=== PATIENT | male | born 1945 | race Caucasian/White ===

== ENCOUNTER 2017-05-03 10:12 | Inpatient (IN) | payer MEDICARE ==
[2017-05-03] MEDS ORDERED: diphenhydrAMINE 25 MG CAP PO PRN (16:59)
[2017-05-03] MEDS ORDERED: Albuterol Sulfate 1.25 MG/3 ML NEB NEB SCH (18:30)
[2017-05-03] MEDS ORDERED: Triamcinolone 0.1% Cream 15 GM TUBE TOP PRN (19:33)
[2017-05-03] MEDS: Metoprolol Tartrate 50 MG TAB PO SCH (20:31)
[2017-05-03] MEDS: Montelukast Sodium 10 mg Tablet PO SCH (20:32)
[2017-05-03] MEDS: diphenhydrAMINE 25 MG CAP PO SCH (20:33)
[2017-05-03] MEDS: Famotidine 20 MG TAB PO SCH (20:34)
[2017-05-03] MEDS: cloNIDine 0.1 MG TAB PO SCH (20:34)
--- NOTE | 2017-05-03 22:38 | HP ---
DATE OF ADMISSION: 05/03/2017 ADMITTING PHYSICIAN: Jazzmine Norton MD NEUROSURGEON: Sudeep Russo MD GENERAL SURGERY: Woo Smith MD PRIMARY CARE PHYSICIAN: Aidan Holman MD REASON FOR ADMISSION: Skilled rehabilitation in [facility]. HISTORY OF PRESENT ILLNESS AND HOSPITAL COURSE: Mr. Dietrich is a 71-year-old male with history of chronic atrial fibrillation,on snf use of Eliquis; advanced dementia, hypertension, and chronic kidney disease stage 3. The patient was admitted initially to [facility] with presenting complaint of unwitnessed mechanical fall at home. The patient sustained a scalp laceration on this. The patient underwent extensive evaluation at [facility] including multiple imaging studies showing minimal subdural hematoma, which was noted nonoperatively by neurosurgeon. CT of the cervical spine revealed a burst fracture of C1, managed with a C-collar and nonoperatively. Patient was given pain control and discontinued his anticoagulation therapy with Eliquis for which he has been on in a while. The scalp laceration was repaired and did receive local wound care throughout his hospital course. Given his history of fall and advanced dementia , the patient was deemed appropriate candidate for skilled care and supervised environment, thus he was transferred to [facility] today. On evaluation, patient was by himself as per staff, family just left as represented by his , Tahira. Patient appears confused, but cooperative. PAST MEDICAL HISTORY: Hypertension, Alzheimer dementia, asthma, atrial fibrillation, on chronic use of Eliquis. PAST SURGICAL HISTORY: Pacemaker and hernia repair. SOCIAL HISTORY: Patient lives at home with his who serves as a primary caregiver. As per record, there was no history of alcohol, tobacco use, or illicit drug use. ALLERGIES: NKDA. MEDICATIONS: 1. Albuterol nebulized t.i.d. p.r.n. 2. Norvasc 10 mg p.o. daily. 3. Vitamin D3 of 2000 units p.o. daily. 4. Clonidine 0.1 mg p.o. b.i.d. 5. Benadryl 25 mg p.o. at bedtime p.r.n. 6. Aricept 10 mg p.o. daily. 7. Pepcid 20 mg p.o. b.i.d. 8. Namenda 10 mg p.o. b.i.d. 9. Metoprolol 25 mg p.o. b.i.d. 10. Singulair 10 mg at bedtime. 11. MiraLax 17 grams daily. 12. Senokot 2 tablets p.o. daily p.r.n. for constipation. REVIEW OF SYSTEMS: Unable to be obtained secondary to patient's dementia/ confusion. PHYSICAL EXAMINATION: VITAL SIGNS: Current vital signs, blood pressure 132/69, temperature 98.3, pulse 67, respirations 20, O2 sats 96% on room air. GENERAL: Patient is awake, alert, knows his name, answers simple questions with some comprehensible words, other words are garbled. Disoriented to time and place. Comfortable in bed, not in acute distress. HEENT: Laceration of the crown and occipital scalp, dry, and no signs of infection, no drainage. NECK: Cervical collar is in place. No tracheal deviation. No JVD, no bruit, no swelling. CHEST: Normal excursion. Nonlabored breathing. LUNGS: Clear to auscultation bilaterally. CARDIAC: Regular rate and rhythm. Normal S1 and S2. No murmurs. ABDOMEN: Flat, soft, normoactive bowel sounds, nondistended, nontender. EXTREMITIES: Range of motion normal. No swelling, no cyanosis. NEUROLOGIC: Nonfocal. Gait unsteady. Confused. SKIN: Pinkish red maculopapular rash, upper back. LABORATORY DATA: Recent labs from [facility], on 2016, WBC 11.8, hemoglobin 14.8, hematocrit 43.7, platelets 219. PT 14.6, INR 1.1, aPTT 32.2. Sodium 143, potassium 3.9, BUN 23, creatinine 1.34, estimated GFR 52, glucose 122, calcium 8.2, magnesium 2.2, phosphorus 3.1. ASSESSMENT: 1. Deconditioning. 2. Status post mechanical fall with C1 cervical burst fracture, nonoperatively managed with [place] J collar alternating with [place] collar for bathing. 3. Subdural hematoma, status post mechanical fall, nonoperative management. 4. Advanced Alzheimer dementia. 5. Hypertension. 6. Chronic atrial fibrillation with chronic anticoagulation of Eliquis, recently discontinued. 7. Status post scalp laceration post-mechanical fall with primary closure. 8. Chronic kidney disease, stage 3. 9. Skin rash, back. PLAN: A 71-year-old with advanced Alzheimer disease, unsteady gait and general weakness secondary to decondition status, status post mechanical fall with C1 cervical burst fracture for conservative management only and recent subdural hematoma, status post mechanical fall, nonoperative management. The patient is admitted to swing bed for skilled rehabilitation. We will continue all current medications as per list. Deep venous thrombosis prophylaxis with SCD. PT, OT evaluation and treat. Fall precautions. Further recommendations depending on hospital course. ESTIMATED LENGTH OF STAY: 3-4 weeks. CODE STATUS: Do not resuscitate. This was confirmed , Tahira, on the phone , based on patient's wishes. DISPOSITION: Possible correction per . [facility]
[2017-05-04] MEDS: Albuterol Sulfate 2.5 mg/3 ml Neb NEB SCH ×3 (06:24→20:36)
[2017-05-04] MEDS: Donepezil HCl 10 MG TAB PO SCH (09:23)
[2017-05-04] MEDS: Famotidine 20 MG TAB PO SCH ×2 (09:24→20:33)
[2017-05-04] MEDS: cloNIDine 0.1 MG TAB PO SCH ×3 (09:24→20:33)
[2017-05-04] MEDS: Amlodipine 5 MG TAB PO SCH (09:24)
[2017-05-04] MEDS: Metoprolol Tartrate 50 MG TAB PO SCH (18:11)
[2017-05-04] MEDS: diphenhydrAMINE 25 MG CAP PO SCH (20:31)
[2017-05-04] MEDS: Montelukast Sodium 10 mg Tablet PO SCH (20:34)
[2017-05-04] MEDS: Metoprolol Tartrate 25 MG TAB PO SCH (20:35)
[2017-05-05] MEDS ORDERED: Levothyroxine Sodium 100 MCG TAB PO SCH (06:00)
[2017-05-05] MEDS: Albuterol Sulfate 2.5 mg/3 ml Neb NEB SCH ×3 (06:09→19:04)
[2017-05-05] MEDS: Donepezil HCl 10 MG TAB PO SCH (09:54)
[2017-05-05] MEDS: Metoprolol Tartrate 25 MG TAB PO SCH ×2 (09:55→19:56)
[2017-05-05] MEDS: Famotidine 20 MG TAB PO SCH ×2 (09:55→19:54)
[2017-05-05] MEDS: Amlodipine 5 MG TAB PO SCH (09:55)
[2017-05-05] MEDS: cloNIDine 0.1 MG TAB PO SCH ×2 (10:02→19:56)
[2017-05-05] MEDS: diphenhydrAMINE 25 MG CAP PO SCH (19:55)
[2017-05-05] MEDS: Montelukast Sodium 10 mg Tablet PO SCH (19:56)
[2017-05-06] MEDS: Albuterol Sulfate 2.5 mg/3 ml Neb NEB SCH ×3 (05:54→18:05)
[2017-05-06] MEDS: Amlodipine 5 MG TAB PO SCH (09:36)
[2017-05-06] MEDS: cloNIDine 0.1 MG TAB PO SCH ×2 (09:37→20:20)
[2017-05-06] MEDS: Metoprolol Tartrate 25 MG TAB PO SCH ×2 (09:38→20:20)
[2017-05-06] MEDS: Famotidine 20 MG TAB PO SCH ×2 (09:39→20:20)
[2017-05-06] MEDS: Donepezil HCl 10 MG TAB PO SCH (09:39)
[2017-05-06] MEDS: diphenhydrAMINE 25 MG CAP PO SCH (20:20)
[2017-05-06] MEDS: Montelukast Sodium 10 mg Tablet PO SCH (20:20)
[2017-05-07] MEDS: Albuterol Sulfate 2.5 mg/3 ml Neb NEB SCH ×3 (05:46→18:12)
[2017-05-07] MEDS: cloNIDine 0.1 MG TAB PO SCH ×2 (09:46→21:22)
[2017-05-07] MEDS: Famotidine 20 MG TAB PO SCH ×2 (09:46→21:23)
[2017-05-07] MEDS: Amlodipine 5 MG TAB PO SCH (09:46)
[2017-05-07] MEDS: Donepezil HCl 10 MG TAB PO SCH (09:46)
[2017-05-07] MEDS: Metoprolol Tartrate 25 MG TAB PO SCH ×2 (09:47→21:25)
[2017-05-07] MEDS: Montelukast Sodium 10 mg Tablet PO SCH (21:22)
[2017-05-07] MEDS: diphenhydrAMINE 25 MG CAP PO SCH (21:22)
[2017-05-08] MEDS: Albuterol Sulfate 2.5 mg/3 ml Neb NEB SCH ×3 (05:57→20:18)
[2017-05-08] MEDS: Donepezil HCl 10 MG TAB PO SCH (10:11)
[2017-05-08] MEDS: Amlodipine 5 MG TAB PO SCH (10:11)
[2017-05-08] MEDS: Metoprolol Tartrate 25 MG TAB PO SCH ×2 (10:12→21:08)
[2017-05-08] MEDS: Famotidine 20 MG TAB PO SCH ×2 (10:12→21:08)
[2017-05-08] MEDS: cloNIDine 0.1 MG TAB PO SCH ×2 (10:12→21:07)
[2017-05-08] MEDS ORDERED: Bisacodyl 10 MG SUPP PR PRN (10:43)
[2017-05-08] MEDS ORDERED: Senokot S 8.6-50 MG TAB PO PRN (10:43)
[2017-05-08] MEDS ORDERED: Polyethylene Glycol 3350 17 GM Packet PO SCH ×2 (11:30→21:00)
[2017-05-08] MEDS: Montelukast Sodium 10 mg Tablet PO SCH (21:07)
[2017-05-08] MEDS: diphenhydrAMINE 25 MG CAP PO SCH (21:08)
[2017-05-09] MEDS: Albuterol Sulfate 2.5 mg/3 ml Neb NEB SCH ×3 (05:38→20:35)
[2017-05-09] MEDS: Amlodipine 5 MG TAB PO SCH (09:30)
[2017-05-09] MEDS: Donepezil HCl 10 MG TAB PO SCH (09:32)
[2017-05-09] MEDS: cloNIDine 0.1 MG TAB PO SCH ×2 (09:32→20:36)
[2017-05-09] MEDS: Famotidine 20 MG TAB PO SCH ×2 (09:33→20:36)
[2017-05-09] MEDS: Metoprolol Tartrate 25 MG TAB PO SCH ×2 (09:33→20:36)
[2017-05-09] MEDS: Polyethylene Glycol 3350 17 GM Packet PO SCH (09:34)
[2017-05-09] MEDS: diphenhydrAMINE 25 MG CAP PO SCH (20:35)
[2017-05-09] MEDS: Montelukast Sodium 10 mg Tablet PO SCH (20:35)
[2017-05-10] MEDS: Albuterol Sulfate 2.5 mg/3 ml Neb NEB SCH ×3 (05:16→18:36)
[2017-05-10] MEDS: Amlodipine 5 MG TAB PO SCH (08:55)
[2017-05-10] MEDS: Donepezil HCl 10 MG TAB PO SCH (08:57)
[2017-05-10] MEDS: cloNIDine 0.1 MG TAB PO SCH ×2 (08:57→19:54)
[2017-05-10] MEDS: Polyethylene Glycol 3350 17 GM Packet PO SCH (08:58)
[2017-05-10] MEDS: Famotidine 20 MG TAB PO SCH ×2 (08:58→22:47)
[2017-05-10] MEDS: Metoprolol Tartrate 25 MG TAB PO SCH ×2 (08:58→19:54)
[2017-05-10] MEDS: diphenhydrAMINE 25 MG CAP PO SCH (19:53)
[2017-05-10] MEDS: Montelukast Sodium 10 mg Tablet PO SCH (19:54)
[2017-05-11] MEDS: Acetaminophen 325 MG TAB PO PRN (08:15)
[2017-05-11] MEDS: Donepezil HCl 10 MG TAB PO SCH (08:16)
[2017-05-11] MEDS: Polyethylene Glycol 3350 17 GM Packet PO SCH (08:17)
[2017-05-11] MEDS: Metoprolol Tartrate 25 MG TAB PO SCH ×2 (08:17→20:31)
[2017-05-11] MEDS: Famotidine 20 MG TAB PO SCH ×2 (08:18→20:30)
[2017-05-11] MEDS: Amlodipine 5 MG TAB PO SCH (08:19)
[2017-05-11] MEDS: cloNIDine 0.1 MG TAB PO SCH ×2 (08:19→20:31)
[2017-05-11] MEDS: Albuterol Sulfate 2.5 mg/3 ml Neb NEB SCH ×2 (17:43→19:20)
[2017-05-11] MEDS: diphenhydrAMINE 25 MG CAP PO SCH (20:30)
[2017-05-11] MEDS: Montelukast Sodium 10 mg Tablet PO SCH (20:31)
[2017-05-12] MEDS: Albuterol Sulfate 2.5 mg/3 ml Neb NEB SCH ×3 (05:32→17:39)
[2017-05-12] MEDS: Polyethylene Glycol 3350 17 GM Packet PO SCH (08:33)
[2017-05-12] MEDS: Metoprolol Tartrate 25 MG TAB PO SCH ×2 (08:34→20:42)
[2017-05-12] MEDS: Famotidine 20 MG TAB PO SCH ×2 (08:34→20:42)
[2017-05-12] MEDS: cloNIDine 0.1 MG TAB PO SCH ×2 (08:34→20:42)
[2017-05-12] MEDS: Amlodipine 5 MG TAB PO SCH (08:34)
[2017-05-12] MEDS: Donepezil HCl 10 MG TAB PO SCH (08:35)
[2017-05-12] MEDS: diphenhydrAMINE 25 MG CAP PO SCH (20:42)
[2017-05-12] MEDS: Montelukast Sodium 10 mg Tablet PO SCH (20:42)
[2017-05-13] MEDS: Albuterol Sulfate 2.5 mg/3 ml Neb NEB SCH ×3 (05:39→19:33)
[2017-05-13] MEDS: Donepezil HCl 10 MG TAB PO SCH (08:33)
[2017-05-13] MEDS: cloNIDine 0.1 MG TAB PO SCH ×2 (08:33→20:30)
[2017-05-13] MEDS: Metoprolol Tartrate 25 MG TAB PO SCH ×2 (08:33→20:30)
[2017-05-13] MEDS: Amlodipine 5 MG TAB PO SCH (08:34)
[2017-05-13] MEDS: Polyethylene Glycol 3350 17 GM Packet PO SCH (08:34)
[2017-05-13] MEDS: Famotidine 20 MG TAB PO SCH ×2 (08:35→20:30)
[2017-05-13] MEDS: diphenhydrAMINE 25 MG CAP PO SCH (20:30)
[2017-05-13] MEDS: Montelukast Sodium 10 mg Tablet PO SCH (20:30)
[2017-05-14] MEDS: Albuterol Sulfate 2.5 mg/3 ml Neb NEB SCH ×3 (06:06→18:13)
[2017-05-14] MEDS: Metoprolol Tartrate 25 MG TAB PO SCH ×2 (09:30→20:29)
[2017-05-14] MEDS: Amlodipine 5 MG TAB PO SCH (09:30)
[2017-05-14] MEDS: Famotidine 20 MG TAB PO SCH ×2 (09:30→20:29)
[2017-05-14] MEDS: Donepezil HCl 10 MG TAB PO SCH (09:30)
[2017-05-14] MEDS: Polyethylene Glycol 3350 17 GM Packet PO SCH (09:30)
[2017-05-14] MEDS: cloNIDine 0.1 MG TAB PO SCH ×2 (09:31→20:29)
[2017-05-14] MEDS: Montelukast Sodium 10 mg Tablet PO SCH (20:28)
[2017-05-14] MEDS: diphenhydrAMINE 25 MG CAP PO SCH (20:29)
[2017-05-14] MEDS: Acetaminophen 325 MG TAB PO PRN (20:30)
[2017-05-15] MEDS: Albuterol Sulfate 2.5 mg/3 ml Neb NEB SCH ×3 (05:28→18:18)
[2017-05-15] MEDS: Amlodipine 5 MG TAB PO SCH (08:54)
[2017-05-15] MEDS: Metoprolol Tartrate 25 MG TAB PO SCH ×2 (08:54→20:09)
[2017-05-15] MEDS: Famotidine 20 MG TAB PO SCH ×2 (08:54→20:09)
[2017-05-15] MEDS: Polyethylene Glycol 3350 17 GM Packet PO SCH (08:54)
[2017-05-15] MEDS: cloNIDine 0.1 MG TAB PO SCH ×2 (08:54→20:09)
[2017-05-15] MEDS: Donepezil HCl 10 MG TAB PO SCH (08:55)
[2017-05-15] MEDS: Acetaminophen 325 MG TAB PO PRN (20:09)
[2017-05-15] MEDS: Montelukast Sodium 10 mg Tablet PO SCH (20:09)
[2017-05-15] MEDS: diphenhydrAMINE 25 MG CAP PO SCH (20:10)
[2017-05-15] MEDS ORDERED: diphenhydrAMINE 25 MG CAP ONE (20:41)
[2017-05-16] MEDS: Albuterol Sulfate 2.5 mg/3 ml Neb NEB SCH ×3 (06:01→20:25)
[2017-05-16] MEDS: Amlodipine 5 MG TAB PO SCH (08:27)
[2017-05-16] MEDS: Donepezil HCl 10 MG TAB PO SCH (08:32)
[2017-05-16] MEDS: cloNIDine 0.1 MG TAB PO SCH ×2 (08:33→20:26)
[2017-05-16] MEDS: Famotidine 20 MG TAB PO SCH ×2 (08:33→20:26)
[2017-05-16] MEDS: Polyethylene Glycol 3350 17 GM Packet PO SCH (08:34)
[2017-05-16] MEDS: Metoprolol Tartrate 25 MG TAB PO SCH ×2 (08:34→20:26)
[2017-05-16] MEDS: Montelukast Sodium 10 mg Tablet PO SCH (20:25)
[2017-05-16] MEDS: diphenhydrAMINE 25 MG CAP PO SCH (20:26)
[2017-05-17] MEDS: Albuterol Sulfate 2.5 mg/3 ml Neb NEB SCH ×3 (05:04→21:21)
[2017-05-17] MEDS: Amlodipine 5 MG TAB PO SCH (10:17)
[2017-05-17] MEDS: Donepezil HCl 10 MG TAB PO SCH (10:20)
[2017-05-17] MEDS: cloNIDine 0.1 MG TAB PO SCH ×2 (10:20→21:20)
[2017-05-17] MEDS: Famotidine 20 MG TAB PO SCH ×2 (10:20→21:20)
[2017-05-17] MEDS: Metoprolol Tartrate 25 MG TAB PO SCH ×2 (10:21→21:20)
[2017-05-17] MEDS: Polyethylene Glycol 3350 17 GM Packet PO SCH (10:21)
[2017-05-17] MEDS: diphenhydrAMINE 25 MG CAP PO SCH (21:20)
[2017-05-17] MEDS: Montelukast Sodium 10 mg Tablet PO SCH (21:20)
[2017-05-18] MEDS: Albuterol Sulfate 2.5 mg/3 ml Neb NEB SCH ×3 (06:24→18:15)
[2017-05-18] MEDS: cloNIDine 0.1 MG TAB PO SCH ×2 (08:31→21:03)
[2017-05-18] MEDS: Polyethylene Glycol 3350 17 GM Packet PO SCH (08:31)
[2017-05-18] MEDS: Amlodipine 5 MG TAB PO SCH (08:31)
[2017-05-18] MEDS: Famotidine 20 MG TAB PO SCH ×2 (08:31→21:02)
[2017-05-18] MEDS: Donepezil HCl 10 MG TAB PO SCH (08:31)
[2017-05-18] MEDS: Metoprolol Tartrate 25 MG TAB PO SCH ×2 (08:32→21:03)
[2017-05-18] MEDS: Acetaminophen 325 MG TAB PO PRN (21:01)
[2017-05-18] MEDS: Montelukast Sodium 10 mg Tablet PO SCH (21:01)
[2017-05-18] MEDS: diphenhydrAMINE 25 MG CAP PO SCH (21:02)
[2017-05-19] MEDS: Albuterol Sulfate 2.5 mg/3 ml Neb NEB SCH ×3 (05:33→18:31)
[2017-05-19] MEDS: Amlodipine 5 MG TAB PO SCH (08:57)
[2017-05-19] MEDS: Polyethylene Glycol 3350 17 GM Packet PO SCH (08:58)
[2017-05-19] MEDS: Famotidine 20 MG TAB PO SCH ×2 (08:58→21:11)
[2017-05-19] MEDS: Donepezil HCl 10 MG TAB PO SCH (08:58)
[2017-05-19] MEDS: cloNIDine 0.1 MG TAB PO SCH ×2 (08:58→21:11)
[2017-05-19] MEDS: Metoprolol Tartrate 25 MG TAB PO SCH ×2 (08:58→21:11)
[2017-05-19] MEDS: diphenhydrAMINE 25 MG CAP PO SCH (21:10)
[2017-05-19] MEDS: Montelukast Sodium 10 mg Tablet PO SCH (21:12)
[2017-05-19] MEDS: Acetaminophen 325 MG TAB PO PRN (21:19)
[2017-05-20] MEDS: Albuterol Sulfate 2.5 mg/3 ml Neb NEB SCH ×3 (05:45→19:08)
[2017-05-20] MEDS: Amlodipine 5 MG TAB PO SCH (08:09)
[2017-05-20] MEDS: Famotidine 20 MG TAB PO SCH ×2 (08:09→20:25)
[2017-05-20] MEDS: Metoprolol Tartrate 25 MG TAB PO SCH ×2 (08:09→20:25)
[2017-05-20] MEDS: cloNIDine 0.1 MG TAB PO SCH ×2 (08:09→20:24)
[2017-05-20] MEDS: Donepezil HCl 10 MG TAB PO SCH (08:09)
[2017-05-20] MEDS: Polyethylene Glycol 3350 17 GM Packet PO SCH (08:10)
[2017-05-20] MEDS: Montelukast Sodium 10 mg Tablet PO SCH (20:24)
[2017-05-20] MEDS: diphenhydrAMINE 25 MG CAP PO SCH (20:25)
[2017-05-21] MEDS: Acetaminophen 325 MG TAB PO PRN ×3 (01:10→21:19)
[2017-05-21] MEDS: Albuterol Sulfate 2.5 mg/3 ml Neb NEB SCH ×3 (06:13→17:56)
[2017-05-21] MEDS: cloNIDine 0.1 MG TAB PO SCH ×2 (09:05→21:19)
[2017-05-21] MEDS: Amlodipine 5 MG TAB PO SCH (09:05)
[2017-05-21] MEDS: Donepezil HCl 10 MG TAB PO SCH (09:05)
[2017-05-21] MEDS: Famotidine 20 MG TAB PO SCH ×2 (09:06→21:19)
[2017-05-21] MEDS: Metoprolol Tartrate 25 MG TAB PO SCH ×2 (09:06→21:19)
[2017-05-21] MEDS: Polyethylene Glycol 3350 17 GM Packet PO SCH (09:06)
[2017-05-21] MEDS: Montelukast Sodium 10 mg Tablet PO SCH (21:18)
[2017-05-21] MEDS: diphenhydrAMINE 25 MG CAP PO SCH (21:19)
[2017-05-22] MEDS: Albuterol Sulfate 2.5 mg/3 ml Neb NEB SCH ×3 (06:04→18:26)
[2017-05-22] MEDS: Acetaminophen 325 MG TAB PO PRN (08:11)
[2017-05-22] MEDS: Donepezil HCl 10 MG TAB PO SCH (08:12)
[2017-05-22] MEDS: Metoprolol Tartrate 25 MG TAB PO SCH ×2 (08:12→20:33)
[2017-05-22] MEDS: Amlodipine 5 MG TAB PO SCH (08:12)
[2017-05-22] MEDS: cloNIDine 0.1 MG TAB PO SCH ×2 (08:12→20:33)
[2017-05-22] MEDS: Polyethylene Glycol 3350 17 GM Packet PO SCH (08:12)
[2017-05-22] MEDS: Famotidine 20 MG TAB PO SCH ×2 (08:12→20:33)
[2017-05-22] MEDS ORDERED: Triamcinolone 0.1% Cream 15 GM TUBE TOP PRN (10:30)
[2017-05-22] MEDS: diphenhydrAMINE 25 MG CAP PO SCH (20:32)
[2017-05-22] MEDS: Montelukast Sodium 10 mg Tablet PO SCH (20:33)
[2017-05-23] MEDS: Albuterol Sulfate 2.5 mg/3 ml Neb NEB SCH ×3 (05:51→18:27)
[2017-05-23] MEDS: Polyethylene Glycol 3350 17 GM Packet PO SCH (08:10)
[2017-05-23] MEDS: Amlodipine 5 MG TAB PO SCH (08:10)
[2017-05-23] MEDS: Metoprolol Tartrate 25 MG TAB PO SCH ×2 (08:11→20:07)
[2017-05-23] MEDS: cloNIDine 0.1 MG TAB PO SCH ×2 (08:12→20:07)
[2017-05-23] MEDS: Donepezil HCl 10 MG TAB PO SCH (08:12)
[2017-05-23] MEDS: Famotidine 20 MG TAB PO SCH ×2 (08:12→20:07)
[2017-05-23] MEDS ORDERED: Acetaminophen 325 MG TAB PO PRN (15:19)
[2017-05-23] MEDS: Montelukast Sodium 10 mg Tablet PO SCH (20:07)
[2017-05-23] MEDS: diphenhydrAMINE 25 MG CAP PO PRN (20:12)
[2017-05-24] MEDS: Albuterol Sulfate 2.5 mg/3 ml Neb NEB SCH ×3 (05:33→19:00)
[2017-05-24] MEDS: Amlodipine 5 MG TAB PO SCH (08:56)
[2017-05-24] MEDS: cloNIDine 0.1 MG TAB PO SCH ×2 (08:57→21:07)
[2017-05-24] MEDS: Donepezil HCl 10 MG TAB PO SCH (08:57)
[2017-05-24] MEDS: Polyethylene Glycol 3350 17 GM Packet PO SCH ×2 (08:58→09:04)
[2017-05-24] MEDS: Famotidine 20 MG TAB PO SCH ×2 (08:58→21:07)
[2017-05-24] MEDS: Metoprolol Tartrate 25 MG TAB PO SCH ×2 (08:58→21:08)
[2017-05-24] MEDS: Montelukast Sodium 10 mg Tablet PO SCH (21:08)
[2017-05-24] MEDS: traZODone HCl 50 MG TAB PO PRN (21:08)
[2017-05-24] MEDS: diphenhydrAMINE 25 MG CAP PO PRN (22:28)
[2017-05-25] MEDS: Albuterol Sulfate 2.5 mg/3 ml Neb NEB SCH ×3 (05:30→18:02)
[2017-05-25] MEDS: Polyethylene Glycol 3350 17 GM Packet PO SCH (08:30)
[2017-05-25] MEDS: Amlodipine 5 MG TAB PO SCH (08:30)
[2017-05-25] MEDS: Donepezil HCl 10 MG TAB PO SCH (08:31)
[2017-05-25] MEDS: cloNIDine 0.1 MG TAB PO SCH ×2 (08:31→21:07)
[2017-05-25] MEDS: Metoprolol Tartrate 25 MG TAB PO SCH ×2 (08:31→21:07)
[2017-05-25] MEDS: Famotidine 20 MG TAB PO SCH ×2 (08:31→21:07)
[2017-05-25] MEDS: Acetaminophen 325 MG TAB PO PRN (18:01)
[2017-05-25] MEDS: diphenhydrAMINE 25 MG CAP PO PRN (21:06)
[2017-05-25] MEDS: Montelukast Sodium 10 mg Tablet PO SCH (21:07)
[2017-05-25] MEDS: traZODone HCl 50 MG TAB PO PRN (21:07)
[2017-05-26] MEDS: Albuterol Sulfate 2.5 mg/3 ml Neb NEB SCH ×3 (05:26→18:30)
[2017-05-26] MEDS: cloNIDine 0.1 MG TAB PO SCH ×2 (08:54→21:51)
[2017-05-26] MEDS: Metoprolol Tartrate 25 MG TAB PO SCH ×2 (08:55→21:52)
[2017-05-26] MEDS: Polyethylene Glycol 3350 17 GM Packet PO SCH (08:55)
[2017-05-26] MEDS: Amlodipine 5 MG TAB PO SCH (08:55)
[2017-05-26] MEDS: Famotidine 20 MG TAB PO SCH ×2 (08:55→21:51)
[2017-05-26] MEDS: Donepezil HCl 10 MG TAB PO SCH (08:55)
[2017-05-26] MEDS: Acetaminophen 325 MG TAB PO PRN (13:05)
[2017-05-26] MEDS: diphenhydrAMINE 25 MG CAP PO PRN (21:52)
[2017-05-26] MEDS: Montelukast Sodium 10 mg Tablet PO SCH (21:52)
[2017-05-27] MEDS: Albuterol Sulfate 2.5 mg/3 ml Neb NEB SCH ×3 (05:34→17:36)
[2017-05-27] MEDS: Amlodipine 5 MG TAB PO SCH (08:22)
[2017-05-27] MEDS: Famotidine 20 MG TAB PO SCH ×2 (08:24→22:03)
[2017-05-27] MEDS: cloNIDine 0.1 MG TAB PO SCH ×2 (08:24→22:03)
[2017-05-27] MEDS: Metoprolol Tartrate 25 MG TAB PO SCH ×2 (08:24→22:03)
[2017-05-27] MEDS: Polyethylene Glycol 3350 17 GM Packet PO SCH (08:24)
[2017-05-27] MEDS: Donepezil HCl 10 MG TAB PO SCH (08:24)
[2017-05-27] MEDS: Acetaminophen 325 MG TAB PO PRN (10:09)
[2017-05-27] MEDS: diphenhydrAMINE 25 MG CAP PO PRN (22:02)
[2017-05-27] MEDS: Montelukast Sodium 10 mg Tablet PO SCH (22:03)
[2017-05-28] MEDS: Albuterol Sulfate 2.5 mg/3 ml Neb NEB SCH ×3 (05:12→17:54)
[2017-05-28] MEDS: Amlodipine 5 MG TAB PO SCH (08:21)
[2017-05-28] MEDS: cloNIDine 0.1 MG TAB PO SCH ×2 (08:22→20:29)
[2017-05-28] MEDS: Donepezil HCl 10 MG TAB PO SCH (08:23)
[2017-05-28] MEDS: Metoprolol Tartrate 25 MG TAB PO SCH ×2 (08:23→20:29)
[2017-05-28] MEDS: Famotidine 20 MG TAB PO SCH ×2 (08:23→20:29)
[2017-05-28] MEDS: Polyethylene Glycol 3350 17 GM Packet PO SCH (08:24)
[2017-05-28] MEDS: Acetaminophen 325 MG TAB PO PRN ×2 (09:56→18:25)
[2017-05-28] MEDS: traZODone HCl 50 MG TAB PO PRN (18:43)
[2017-05-28] MEDS ORDERED: traMADol HCl 50 MG TAB PO PRN (19:46)
[2017-05-28] MEDS: Montelukast Sodium 10 mg Tablet PO SCH (20:29)
[2017-05-29] MEDS: Albuterol Sulfate 2.5 mg/3 ml Neb NEB SCH ×3 (06:10→19:21)
[2017-05-29] MEDS: Amlodipine 5 MG TAB PO SCH (08:55)
[2017-05-29] MEDS: Donepezil HCl 10 MG TAB PO SCH (08:57)
[2017-05-29] MEDS: Famotidine 20 MG TAB PO SCH ×2 (08:57→20:31)
[2017-05-29] MEDS: cloNIDine 0.1 MG TAB PO SCH ×2 (08:57→20:31)
[2017-05-29] MEDS: Metoprolol Tartrate 25 MG TAB PO SCH ×2 (08:58→20:31)
[2017-05-29] MEDS: Polyethylene Glycol 3350 17 GM Packet PO SCH (08:58)
[2017-05-29] MEDS ORDERED: Senokot S 8.6-50 MG TAB PO PRN (10:15)
[2017-05-29] MEDS: diphenhydrAMINE 25 MG CAP PO PRN (20:31)
[2017-05-29] MEDS: traZODone HCl 50 MG TAB PO PRN (20:31)
[2017-05-29] MEDS: Montelukast Sodium 10 mg Tablet PO SCH (20:31)
[2017-05-30] MEDS: Albuterol Sulfate 2.5 mg/3 ml Neb NEB SCH ×3 (05:49→18:06)
[2017-05-30] MEDS: Amlodipine 5 MG TAB PO SCH (09:03)
[2017-05-30] MEDS: Famotidine 20 MG TAB PO SCH ×2 (09:03→20:19)
[2017-05-30] MEDS: Metoprolol Tartrate 25 MG TAB PO SCH ×2 (09:04→20:20)
[2017-05-30] MEDS: Donepezil HCl 10 MG TAB PO SCH (09:04)
[2017-05-30] MEDS: Polyethylene Glycol 3350 17 GM Packet PO SCH (09:04)
[2017-05-30] MEDS: cloNIDine 0.1 MG TAB PO SCH ×2 (09:04→20:20)
[2017-05-30] MEDS: traZODone HCl 50 MG TAB PO PRN (20:20)
[2017-05-30] MEDS: diphenhydrAMINE 25 MG CAP PO PRN (20:20)
[2017-05-30] MEDS: Montelukast Sodium 10 mg Tablet PO SCH (20:20)
[2017-05-31] MEDS: Albuterol Sulfate 2.5 mg/3 ml Neb NEB SCH ×3 (05:32→18:15)
[2017-05-31] MEDS: Donepezil HCl 10 MG TAB PO SCH (09:19)
[2017-05-31] MEDS: cloNIDine 0.1 MG TAB PO SCH ×2 (09:20→20:52)
[2017-05-31] MEDS: Amlodipine 5 MG TAB PO SCH (09:20)
[2017-05-31] MEDS: Famotidine 20 MG TAB PO SCH ×2 (09:20→20:52)
[2017-05-31] MEDS: Metoprolol Tartrate 25 MG TAB PO SCH ×2 (09:20→20:52)
[2017-05-31] MEDS: Polyethylene Glycol 3350 17 GM Packet PO SCH (09:21)
[2017-05-31] MEDS: Acetaminophen 325 MG TAB PO PRN (20:51)
[2017-05-31] MEDS: Montelukast Sodium 10 mg Tablet PO SCH (20:51)
[2017-06-01] MEDS: Albuterol Sulfate 2.5 mg/3 ml Neb NEB SCH ×3 (05:41→18:16)
[2017-06-01] MEDS: Amlodipine 5 MG TAB PO SCH (08:35)
[2017-06-01] MEDS: cloNIDine 0.1 MG TAB PO SCH ×2 (08:36→20:43)
[2017-06-01] MEDS: Polyethylene Glycol 3350 17 GM Packet PO SCH (08:36)
[2017-06-01] MEDS: Donepezil HCl 10 MG TAB PO SCH (08:36)
[2017-06-01] MEDS: Famotidine 20 MG TAB PO SCH ×2 (08:36→20:44)
[2017-06-01] MEDS: Metoprolol Tartrate 25 MG TAB PO SCH ×2 (08:36→20:43)
[2017-06-01] MEDS: Montelukast Sodium 10 mg Tablet PO SCH (20:43)
[2017-06-01] MEDS: traZODone HCl 50 MG TAB PO PRN (20:44)
[2017-06-01] MEDS: diphenhydrAMINE 25 MG CAP PO PRN (20:44)
[2017-06-02] MEDS: Albuterol Sulfate 2.5 mg/3 ml Neb NEB SCH ×3 (05:30→18:01)
[2017-06-02] MEDS: Polyethylene Glycol 3350 17 GM Packet PO SCH (08:12)
[2017-06-02] MEDS: Famotidine 20 MG TAB PO SCH ×2 (08:13→20:36)
[2017-06-02] MEDS: Metoprolol Tartrate 25 MG TAB PO SCH ×2 (08:13→20:37)
[2017-06-02] MEDS: Donepezil HCl 10 MG TAB PO SCH (08:13)
[2017-06-02] MEDS: Amlodipine 5 MG TAB PO SCH (08:13)
[2017-06-02] MEDS: cloNIDine 0.1 MG TAB PO SCH ×2 (08:13→20:37)
[2017-06-02] MEDS: Montelukast Sodium 10 mg Tablet PO SCH (20:36)
[2017-06-02] MEDS: diphenhydrAMINE 25 MG CAP PO PRN (20:38)
[2017-06-02] MEDS: traZODone HCl 50 MG TAB PO PRN (20:38)
[2017-06-03] MEDS: Acetaminophen 325 MG TAB PO PRN (05:10)
[2017-06-03] MEDS: Albuterol Sulfate 2.5 mg/3 ml Neb NEB SCH ×3 (05:40→18:26)
[2017-06-03] MEDS: Amlodipine 5 MG TAB PO SCH (08:42)
[2017-06-03] MEDS: cloNIDine 0.1 MG TAB PO SCH ×2 (08:44→20:23)
[2017-06-03] MEDS: Donepezil HCl 10 MG TAB PO SCH (08:44)
[2017-06-03] MEDS: Polyethylene Glycol 3350 17 GM Packet PO SCH (08:45)
[2017-06-03] MEDS: Metoprolol Tartrate 25 MG TAB PO SCH ×2 (08:45→20:23)
[2017-06-03] MEDS: Famotidine 20 MG TAB PO SCH ×2 (08:45→20:23)
[2017-06-03] MEDS: Montelukast Sodium 10 mg Tablet PO SCH (20:23)
[2017-06-03] MEDS: diphenhydrAMINE 25 MG CAP PO PRN (20:23)
[2017-06-03] MEDS: traZODone HCl 50 MG TAB PO PRN (20:24)
[2017-06-04] MEDS: Albuterol Sulfate 2.5 mg/3 ml Neb NEB SCH ×3 (06:20→17:38)
[2017-06-04] MEDS: cloNIDine 0.1 MG TAB PO SCH ×2 (08:31→20:03)
[2017-06-04] MEDS: Amlodipine 5 MG TAB PO SCH (08:31)
[2017-06-04] MEDS: Polyethylene Glycol 3350 17 GM Packet PO SCH (08:32)
[2017-06-04] MEDS: Metoprolol Tartrate 25 MG TAB PO SCH ×2 (08:32→20:03)
[2017-06-04] MEDS: Donepezil HCl 10 MG TAB PO SCH (08:32)
[2017-06-04] MEDS: Famotidine 20 MG TAB PO SCH ×2 (08:32→20:04)
[2017-06-04] MEDS: diphenhydrAMINE 25 MG CAP PO PRN (20:04)
[2017-06-04] MEDS: Montelukast Sodium 10 mg Tablet PO SCH (20:04)
[2017-06-04] MEDS: traZODone HCl 50 MG TAB PO PRN (20:04)
[2017-06-05] MEDS: Albuterol Sulfate 2.5 mg/3 ml Neb NEB SCH ×3 (05:28→18:22)
[2017-06-05] MEDS: Polyethylene Glycol 3350 17 GM Packet PO SCH (09:08)
[2017-06-05] MEDS: Amlodipine 5 MG TAB PO SCH (09:09)
[2017-06-05] MEDS: Famotidine 20 MG TAB PO SCH ×2 (09:09→21:17)
[2017-06-05] MEDS: Metoprolol Tartrate 25 MG TAB PO SCH ×2 (09:09→21:16)
[2017-06-05] MEDS: cloNIDine 0.1 MG TAB PO SCH ×2 (09:10→21:17)
[2017-06-05] MEDS: Donepezil HCl 10 MG TAB PO SCH (09:10)
[2017-06-05] MEDS: Acetaminophen 325 MG TAB PO PRN (21:16)
[2017-06-05] MEDS: diphenhydrAMINE 25 MG CAP PO PRN (21:17)
[2017-06-05] MEDS: Montelukast Sodium 10 mg Tablet PO SCH (21:17)
[2017-06-06] MEDS: Albuterol Sulfate 2.5 mg/3 ml Neb NEB SCH ×3 (05:48→18:19)
[2017-06-06] MEDS: Polyethylene Glycol 3350 17 GM Packet PO SCH (09:12)
[2017-06-06] MEDS: Donepezil HCl 10 MG TAB PO SCH (09:13)
[2017-06-06] MEDS: Amlodipine 5 MG TAB PO SCH (09:13)
[2017-06-06] MEDS: Metoprolol Tartrate 25 MG TAB PO SCH ×2 (09:13→21:26)
[2017-06-06] MEDS: Famotidine 20 MG TAB PO SCH ×2 (09:13→21:26)
[2017-06-06] MEDS: cloNIDine 0.1 MG TAB PO SCH ×2 (09:13→21:26)
[2017-06-06] MEDS: Montelukast Sodium 10 mg Tablet PO SCH (21:25)
[2017-06-06] MEDS: Acetaminophen 325 MG TAB PO PRN (21:25)
[2017-06-06] MEDS: traZODone HCl 50 MG TAB PO PRN (21:26)
[2017-06-06] MEDS: diphenhydrAMINE 25 MG CAP PO PRN (21:26)
[2017-06-07] MEDS: Albuterol Sulfate 2.5 mg/3 ml Neb NEB SCH ×3 (05:34→18:34)
[2017-06-07] MEDS: Amlodipine 5 MG TAB PO SCH (08:34)
[2017-06-07] MEDS: Polyethylene Glycol 3350 17 GM Packet PO SCH (08:35)
[2017-06-07] MEDS: Famotidine 20 MG TAB PO SCH ×2 (08:35→21:08)
[2017-06-07] MEDS: Donepezil HCl 10 MG TAB PO SCH (08:35)
[2017-06-07] MEDS: cloNIDine 0.1 MG TAB PO SCH ×2 (08:35→21:08)
[2017-06-07] MEDS: Metoprolol Tartrate 25 MG TAB PO SCH ×2 (08:35→21:09)
[2017-06-07] MEDS: Montelukast Sodium 10 mg Tablet PO SCH (21:09)
[2017-06-08] MEDS: Albuterol Sulfate 2.5 mg/3 ml Neb NEB SCH ×2 (06:20→13:56)
[2017-06-08] MEDS: cloNIDine 0.1 MG TAB PO SCH ×2 (09:03→21:08)
[2017-06-08] MEDS: Amlodipine 5 MG TAB PO SCH (09:03)
[2017-06-08] MEDS: Donepezil HCl 10 MG TAB PO SCH (09:03)
[2017-06-08] MEDS: Famotidine 20 MG TAB PO SCH ×2 (09:04→21:08)
[2017-06-08] MEDS: Metoprolol Tartrate 25 MG TAB PO SCH ×2 (09:04→21:07)
[2017-06-08] MEDS: Polyethylene Glycol 3350 17 GM Packet PO SCH (09:04)
[2017-06-08] MEDS ORDERED: Albuterol Sulfate 1.25 MG/3 ML NEB NEB SCH (19:00)
[2017-06-08] MEDS ORDERED: Albuterol Sulfate 1.25 MG/3 ML NEB NEB PRN (20:17)
[2017-06-08] MEDS: diphenhydrAMINE 25 MG CAP PO PRN (21:07)
[2017-06-08] MEDS: Montelukast Sodium 10 mg Tablet PO SCH (21:07)
[2017-06-08] MEDS: traZODone HCl 50 MG TAB PO PRN (21:08)
[2017-06-09] MEDS: Polyethylene Glycol 3350 17 GM Packet PO SCH (09:55)
[2017-06-09] MEDS: Donepezil HCl 10 MG TAB PO SCH (09:55)
[2017-06-09] MEDS: Metoprolol Tartrate 25 MG TAB PO SCH ×2 (09:55→21:33)
[2017-06-09] MEDS: Famotidine 20 MG TAB PO SCH ×2 (09:55→21:34)
[2017-06-09] MEDS: cloNIDine 0.1 MG TAB PO SCH ×2 (09:55→21:35)
[2017-06-09] MEDS: Amlodipine 5 MG TAB PO SCH (09:55)
[2017-06-09] MEDS: Montelukast Sodium 10 mg Tablet PO SCH (21:33)
[2017-06-09] MEDS: traZODone HCl 50 MG TAB PO PRN (21:34)
[2017-06-09] MEDS: diphenhydrAMINE 25 MG CAP PO PRN (21:34)
[2017-06-10] MEDS: Amlodipine 5 MG TAB PO SCH (09:04)
[2017-06-10] MEDS: cloNIDine 0.1 MG TAB PO SCH ×2 (09:06→21:06)
[2017-06-10] MEDS: Donepezil HCl 10 MG TAB PO SCH (09:07)
[2017-06-10] MEDS: Famotidine 20 MG TAB PO SCH ×2 (09:07→21:06)
[2017-06-10] MEDS: Metoprolol Tartrate 25 MG TAB PO SCH ×2 (09:08→21:06)
[2017-06-10] MEDS: Polyethylene Glycol 3350 17 GM Packet PO SCH (09:09)
[2017-06-10] MEDS: Montelukast Sodium 10 mg Tablet PO SCH (21:05)
[2017-06-10] MEDS: diphenhydrAMINE 25 MG CAP PO PRN (21:08)
[2017-06-10] MEDS: traZODone HCl 50 MG TAB PO PRN (21:08)
[2017-06-11] MEDS: Polyethylene Glycol 3350 17 GM Packet PO SCH (09:29)
[2017-06-11] MEDS: Amlodipine 5 MG TAB PO SCH (09:30)
[2017-06-11] MEDS: Donepezil HCl 10 MG TAB PO SCH (09:31)
[2017-06-11] MEDS: cloNIDine 0.1 MG TAB PO SCH ×2 (09:31→20:11)
[2017-06-11] MEDS: Metoprolol Tartrate 25 MG TAB PO SCH ×2 (09:31→20:11)
[2017-06-11] MEDS: Famotidine 20 MG TAB PO SCH ×2 (09:31→20:11)
[2017-06-11] MEDS: Montelukast Sodium 10 mg Tablet PO SCH (20:11)
[2017-06-11] MEDS: traZODone HCl 50 MG TAB PO PRN (20:12)
[2017-06-11] MEDS: diphenhydrAMINE 25 MG CAP PO PRN (20:12)
[2017-06-12] MEDS: cloNIDine 0.1 MG TAB PO SCH ×2 (08:10→20:37)
[2017-06-12] MEDS: Donepezil HCl 10 MG TAB PO SCH (08:10)
[2017-06-12] MEDS: Famotidine 20 MG TAB PO SCH ×2 (08:10→20:37)
[2017-06-12] MEDS: Amlodipine 5 MG TAB PO SCH (08:10)
[2017-06-12] MEDS: Metoprolol Tartrate 25 MG TAB PO SCH ×2 (08:11→20:38)
[2017-06-12] MEDS: Polyethylene Glycol 3350 17 GM Packet PO SCH (08:11)
[2017-06-12] MEDS: Montelukast Sodium 10 mg Tablet PO SCH (20:37)
[2017-06-12] MEDS: traZODone HCl 50 MG TAB PO PRN (20:37)
[2017-06-12] MEDS: diphenhydrAMINE 25 MG CAP PO PRN (20:38)
[2017-06-13 04:47] VITALS: BMI 24.7
[2017-06-13] MEDS: Amlodipine 5 MG TAB PO SCH (09:05)
[2017-06-13] MEDS: Metoprolol Tartrate 25 MG TAB PO SCH ×2 (09:06→20:26)
[2017-06-13] MEDS: Famotidine 20 MG TAB PO SCH ×2 (09:06→20:27)
[2017-06-13] MEDS: Donepezil HCl 10 MG TAB PO SCH (09:06)
[2017-06-13] MEDS: Polyethylene Glycol 3350 17 GM Packet PO SCH (09:06)
[2017-06-13] MEDS: cloNIDine 0.1 MG TAB PO SCH ×2 (09:06→20:26)
[2017-06-13] MEDS: diphenhydrAMINE 25 MG CAP PO PRN (20:26)
[2017-06-13] MEDS: Montelukast Sodium 10 mg Tablet PO SCH (20:27)
[2017-06-13] MEDS: traZODone HCl 50 MG TAB PO PRN (20:27)
[2017-06-14] MEDS: Amlodipine 5 MG TAB PO SCH (07:58)
[2017-06-14] MEDS: Donepezil HCl 10 MG TAB PO SCH (07:59)
[2017-06-14] MEDS: cloNIDine 0.1 MG TAB PO SCH ×2 (07:59→20:16)
[2017-06-14] MEDS: Polyethylene Glycol 3350 17 GM Packet PO SCH (07:59)
[2017-06-14] MEDS: Famotidine 20 MG TAB PO SCH ×2 (07:59→20:16)
[2017-06-14] MEDS: Metoprolol Tartrate 25 MG TAB PO SCH ×2 (07:59→20:17)
[2017-06-14] MEDS: traZODone HCl 50 MG TAB PO PRN (20:16)
[2017-06-14] MEDS: Montelukast Sodium 10 mg Tablet PO SCH (20:16)
[2017-06-14] MEDS: diphenhydrAMINE 25 MG CAP PO PRN (20:16)
[2017-06-15] MEDS: cloNIDine 0.1 MG TAB PO SCH ×2 (09:07→20:26)
[2017-06-15] MEDS: Polyethylene Glycol 3350 17 GM Packet PO SCH (09:07)
[2017-06-15] MEDS: Amlodipine 5 MG TAB PO SCH (09:08)
[2017-06-15] MEDS: Donepezil HCl 10 MG TAB PO SCH (09:08)
[2017-06-15] MEDS: Famotidine 20 MG TAB PO SCH ×2 (09:08→20:25)
[2017-06-15] MEDS: Metoprolol Tartrate 25 MG TAB PO SCH ×2 (09:08→20:26)
[2017-06-15] MEDS ORDERED: traZODone HCl 50 MG TAB PO PRN (19:35)
[2017-06-15] MEDS ORDERED: risperiDONE 0.5 MG TAB PO PRN (19:36)
[2017-06-15] MEDS: diphenhydrAMINE 25 MG CAP PO PRN (20:25)
[2017-06-15] MEDS: Montelukast Sodium 10 mg Tablet PO SCH (20:26)
[2017-06-16 07:55] VITALS: BP 123/58; TEMP 98
[2017-06-16] MEDS: Amlodipine 5 MG TAB PO SCH (08:15)
[2017-06-16] MEDS: cloNIDine 0.1 MG TAB PO SCH (08:16)
[2017-06-16] MEDS: Polyethylene Glycol 3350 17 GM Packet PO SCH (08:16)
[2017-06-16] MEDS: Metoprolol Tartrate 25 MG TAB PO SCH (08:16)
[2017-06-16] MEDS: Donepezil HCl 10 MG TAB PO SCH (08:16)
[2017-06-16] MEDS: Famotidine 20 MG TAB PO SCH (08:16)
[2017-06-16] MEDS: Acetaminophen 325 MG TAB PO PRN (12:17)
--- NOTE | 2017-06-18 02:53 | DIS ---
DATE OF ADMISSION: 05/03/2017 DATE OF DISCHARGE: 06/16/2017 DISCHARGE DIAGNOSES: 1. Alzheimer's, late onset. 2. Dementia with behavioral disturbances. 3. Chronic atrial fibrillation and previously on chronic anticoagulation of Eliquis, recently discontinued secondary to fall. 4. Status post mechanical fall with C1 cervical burst fracture, nonoperatively managed with [place] J collar alternative with [place] collar for bathing. 5. Subdural hematoma, status post mechanical fall, nonoperative management. 5. Hypertension. 6. Status post scalp laceration post-mechanical fall with primary closure, resolved. 7. Chronic kidney disease, stage 3. 8. Fall risk. 9. Elopement risk. 10. Pacemaker in situ. 11. CODE STATUS: Do not resuscitate. MEDICATIONS: Amlodipine 10 mg daily, Clonidine 0.1 mg p.o. b.i.d., metoprolol 25 mg p.o. b.i.d., Risperdal 0.5 mg p.o. at bedtime p.r.n., trazodone 100 mg p.o. at bedtime p.r.n., albuterol nebs t.i.d. p.r.n., famotidine 20 mg p.o. b.i.d., Singulair 10 mg p.o. at bedtime., MiraLax 17 grams daily. HISTORY OF THE PRESENT ILLNESS AND HOSPITAL COURSE: Mr. Dietrich is a 71-year- old male with significant history of chronic atrial fibrillation and long-term use of Eliquis, advanced dementia, hypertension, chronic kidney disease stage 3. The patient was initially admitted to [facility] in [place] with presenting complaint of unwitnessed mechanical fall at home. The patient sustained a scalp laceration, which was repaired. The patient also underwent extensive evaluation at [facility] including multiple imaging studies, showing minimal subdural hematoma, which was recommended nonoperative by neurosurgeon. CT scan of cervical spine revealed a burst fracture of C1, conservative management only. The patient was recommended to discontinue his anticoagulation while in the hospital due to the presence of subdural hematoma. He was then subsequently transferred to [facility] swing bed for skilled rehabilitation. The patient did well with rehabilitation, he was walking 500 to 600 feet without assistive device. He followed up with neurosurgeon, Dr. Sudeep Russo while in rehab and recommended to continue wearing the cervical collar for another 6 weeks. While in skilled rehabilitation, the patient was noted to be very confused all the time. He could not carry good conversations secondary to confusion. He is unable to follow significant commands, needing constant reminders and cueing for everything. He remains at the risk for fall and elopement recommending 24- hour supervision. There was multiple conversations and discussion with regarding his overall care and advance plan care. confirmed the DNR status of patient. The patient's reports that she could not take care of the patient at home as she continues to work. We referred the patient to senior living placement, but after talked to [facility], reports that she would not be able to sustain a self-pay in senior living at this point. Other Alzheimer's units were offered but would like to stay in town as much as possible. Other resources were explored. talked to different social workers, caseworker and even with her attorneys for this. then decided to discharge patient home on palliative care with hospice. The patient was referred to [facility] per 's request. 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 On 06/16/2017, the patient was discharged home in a stable condition. Vital signs prior to discharge, blood pressure 123/58, pulse 60, temperature 98 , respirations 18, O2 sats 95% on room air, weight 187 pounds and 5 ounces, height 6 feet. Time spent on this discharge 32 minutes. ANTHONY
== END 2017-06-16 17:11 | disposition hospice, home (50) | DRG 948 ==
LOC: MADMS 10:48
PROVIDERS: ADMIT Family Medicine; ATTEND Family Medicine
DX: R53.1 Weakness (principal); I48.2 Chronic atrial fibrillation; G30.1 Alzheimer's disease with late onset; F02.81 Dementia in other diseases classified elsewhere, unspecified severity, with behavioral disturbance; S12.01XD Stable burst fracture of first cervical vertebra, subsequent encounter for fracture with routine healing; W18.30XD Fall on same level, unspecified, subsequent encounter; S06.5X9D Traumatic subdural hemorrhage with loss of consciousness of unspecified duration, subsequent encounter; Z79.01 Long term (current) use of anticoagulants; S01.01XD Laceration without foreign body of scalp, subsequent encounter; I12.9 Hypertensive chronic kidney disease with stage 1 through stage 4 chronic kidney disease, or unspecified chronic kidney disease; N18.3 Chronic kidney disease, stage 3 (moderate); R21 Rash and other nonspecific skin eruption; R26.81 Unsteadiness on feet; Z66 Do not resuscitate; Z95.0 Presence of cardiac pacemaker; Z51.5 Encounter for palliative care
CPT/HCPCS: 94640; G8978-GP-CK; G8978-GP-CM; G8979-GP-CJ; J7611